=== PATIENT | female | born 2000 | race Hispanic/Latino ===

== ENCOUNTER 2024-01-19 01:59 | Inpatient (IN) | payer OTHER ==
[2024-01-19] MEDS ORDERED: hydrALAZINE 20 MG/ML VIAL SLOW IVP PRN ×2 (02:00→18:13)
[2024-01-19 02:25] VITALS: BMI 32.1
[2024-01-19] MEDS ORDERED: Promethazine HCl 25 MG/ML VIAL IM PRN ×2 (02:36→11:40)
[2024-01-19] MEDS ORDERED: Carboprost 250 MCG/ML AMP IM PRN (02:36)
[2024-01-19] MEDS ORDERED: Diphenoxylate HCl/Atropine Tablet PO PRN (02:36)
[2024-01-19] MEDS ORDERED: Acetaminophen 500 MG TAB PO PRN (02:36)
[2024-01-19] MEDS ORDERED: Ibuprofen 800 MG TAB PO PRN (02:36)
[2024-01-19] MEDS ORDERED: Tranexamic Acid 1,000 MG/10 ML VIAL IVP PRN (02:36)
[2024-01-19] MEDS ORDERED: Methylergonovine 0.2 MG/ML VIAL IM PRN (02:36)
[2024-01-19] MEDS ORDERED: Lidocaine 1% (PF) 30 ML VIAL SC PRN (02:36)
[2024-01-19] MEDS ORDERED: Misoprostol 200 MCG TAB PR PRN (02:36)
[2024-01-19] MEDS ORDERED: Oxytocin 30 units/NS 500 ML 500 ML IV SCH ×2 (02:45)
[2024-01-19] MEDS ORDERED: Penicillin G Potassium 5 MILL.UNITS in Sodium Chloride 0.9% 100 ML IVPB SCH (02:45)
[2024-01-19] MEDS ORDERED: Lactated Ringer's 1,000 ML IV SCH (02:45)
[2024-01-19 03:07] LABS: Hemoglobin 11.8 g/dL (12.0-15.5); Mean Corpuscular HGB CONC 34.7 g/dL (32.0-36.0); Mean Corpuscular Hemoglobin 30.8 pg (27.0-33.0); Mean Corpuscular Volume 88.8 fL (81.6-98.3); Mean Platelet Volume 12.3 fL (7.4-10.4); Platelet Count 266 10x3/uL (150-450); RBC Distribution Width 16.2 % (11.5-14.5); Red Blood Cell (RBC) Count 3.83 10x6/uL (3.90-5.03); White Blood Cell (WBC) Count 12.6 10x3/uL (3.5-10.5)
[2024-01-19 03:44] LABS: HBsAg Index 0.19 S/CO (0-0.99); Hep B Surf Ag - L&D Non-Reactive S/CO (NonReactive)
[2024-01-19 03:45] LABS: Syphilis Antibody Nonreactive (Nonreactive); Syphilis Antibody Index 0.03 S/CO (<1.00 Non-Reactive)
[2024-01-19] MEDS ORDERED: Fentanyl 100 MCG/2 ML VIAL SLOW IVP PRN (03:55)
[2024-01-19] MEDS: fentaNYL 50 mcg/mL 1 mL Vial ONE (04:04)
[2024-01-19] MEDS: Penicillin G 2.5 MILL.units 2.5 MILL.UNITS in Premix 1 BAG IVPB SCH (06:08)
[2024-01-19] MEDS ORDERED: Bupivacaine/Epinephrine 0.25% 30 ML VIAL ONE (08:00)
[2024-01-19] MEDS: Ondansetron PF 4 MG/2 ML Vial IVP PRN (10:34)
[2024-01-19] MEDS ORDERED: Moisturizing Cream (Eucerin) 113 GM JAR TOP PRN (11:40)
[2024-01-19] MEDS ORDERED: Lactated Ringer's 500 ML IV PRN (11:40)
[2024-01-19] MEDS ORDERED: ePHEDrine Sulfate 50 MG/10 ML VIAL SLOW IVP PRN (11:40)
[2024-01-19] MEDS ORDERED: Ondansetron PF 4 MG/2 ML Vial IVP PRN ×2 (11:40→18:13)
[2024-01-19] MEDS ORDERED: diphenhydrAMINE 50 MG/ML VIAL IVP PRN (11:40)
[2024-01-19] MEDS ORDERED: Naloxone HCl 0.4 mg/ml Vial IVP PRN ×2 (11:40)
[2024-01-19] MEDS ORDERED: Communication Order-Pharmacy FS SCH (11:45)
[2024-01-19] MEDS ORDERED: fentaNYL 2 mcg/Ropivacaine 0.2% Epidural 100 ML CADD EPIDURAL SCH (11:45)
[2024-01-19] MEDS ORDERED: Preparation H Ointment 28 GM TUBE PR PRN (18:13)
[2024-01-19] MEDS ORDERED: Lanolin Ointment 7 GM TUBE TOP PRN (18:13)
[2024-01-19] MEDS ORDERED: HYDROcodone/Acetaminophen 5/325 mg Tablet PO PRN (18:13)
[2024-01-19] MEDS ORDERED: Zolpidem Tartrate 5 MG TAB PO PRN (18:13)
[2024-01-19] MEDS ORDERED: Bisacodyl 10 MG SUPP PR PRN (18:13)
[2024-01-19] MEDS ORDERED: Milk Of Magnesia 30 ML UDCUP PO PRN (18:13)
[2024-01-19] MEDS ORDERED: diphenhydrAMINE 25 MG CAP PO PRN (18:13)
[2024-01-19] MEDS: Acetaminophen 325 MG TAB PO PRN (19:45)
[2024-01-19] MEDS: fentaNYL 50 mcg/mL 1 mL Vial SLOW IVP SCH (20:01)
[2024-01-19] MEDS: Penicillin G Potassium 5 MILL.UNITS VIAL ONE (20:01)
[2024-01-19] MEDS: fentaNYL/Ropivacaine Epidural 100 ML ONE (20:02)
[2024-01-19] MEDS: Docusate 100 MG CAP PO SCH (21:48)
[2024-01-19] MEDS: Ibuprofen 800 MG TAB PO SCH (21:48)
[2024-01-19] MEDS: Benzocaine-Menthol 82.5 ML CAN TOP PRN (21:49)
[2024-01-20 04:03] LABS: Hematocrit 28.9 % (34.9-44.5); Hemoglobin 9.4 g/dL (12.0-15.5); Mean Corpuscular HGB CONC 32.5 g/dL (32.0-36.0); Mean Corpuscular Hemoglobin 29.8 pg (27.0-33.0); Mean Corpuscular Volume 91.7 fL (81.6-98.3); Mean Platelet Volume 11.8 fL (7.4-10.4); Platelet Count 207 10x3/uL (150-450); RBC Distribution Width 16.3 % (11.5-14.5); Red Blood Cell (RBC) Count 3.15 10x6/uL (3.90-5.03); White Blood Cell (WBC) Count 18.4 10x3/uL (3.5-10.5)
[2024-01-20] MEDS: Prenatal Vitamin 1 TAB PO SCH (08:06)
[2024-01-20] MEDS: Ferrous Sulfate 325 MG TAB PO SCH (08:06)
[2024-01-21] MEDS: Boostrix 0.5 ML (Tdap) VIAL (>/=7 yrs of age) IM ONE (07:15)
[2024-01-21 07:27] VITALS: BP 123/81; TEMP 97.9
== END 2024-01-21 12:45 | disposition home or self-care (01) | DRG 807 ==
LOC: CSHLD/OP 01:59 → CSHLD 02:19 → CSHPP 21:00
PROVIDERS: ADMIT Family Medicine; ATTEND Family Medicine
PROC: 10E0XZZ Delivery of Products of Conception, External Approach (ICD-10-PCS; principal; 2024-01-19)
PROC: 0KQM0ZZ Repair Perineum Muscle, Open Approach (ICD-10-PCS; 2024-01-19)
PROC: 0UQMXZZ Repair Vulva, External Approach (ICD-10-PCS; 2024-01-19)
DX: O99.214 Obesity complicating childbirth (principal); Z37.0 Single live birth; O48.0 Post-term pregnancy; O99.824 Streptococcus B carrier state complicating childbirth; Z3A.40 40 weeks gestation of pregnancy; O70.1 Second degree perineal laceration during delivery; O71.82 Other specified trauma to perineum and vulva
CPT/HCPCS: 36415; 51702; 76815; 85027; 86780; 86850; 86900; 86901; 87340; 99282; 99285; J2405; J2540; J3010